=== PATIENT | male | born 1950 | race Caucasian/White ===

== ENCOUNTER 2022-04-24 10:04 | Emergency (ER) | payer OTHER ==
[~2022-04-24] VITALS: Ht 177.8 cm; Wt 116.1 kg
[2022-04-24] MEDS ORDERED: ONDANSETRON HCL/PF 4 MG/2 ML VIAL ONE (10:12)
[2022-04-24] MEDS ORDERED: PANTOPRAZOLE 40 MG VIAL ONE (10:12)
[2022-04-24] MEDS ORDERED: PANTOPRAZOLE 40 MG VIAL IV ONE (10:30)
[2022-04-24] MEDS ORDERED: ONDANSETRON HCL/PF 4 MG/2 ML VIAL IVP ONE (10:30)
[2022-04-24 10:56] LABS: BASOPHILS % (AUTO) 0.2 % (0.0-2.0); HEMATOCRIT 25 % (39-51); HEMOGLOBIN 7.7 g/dL (13.5-17.5); LYMPHOCYTES # (AUTO) 1.8 K/uL (0.8-4.8); LYMPHOCYTES % (AUTO) 6.8 % (20.0-44.0); MEAN CORPUSCULAR HGB CONC 31 g/dl (31.0-36.0); MEAN CORPUSCULAR VOLUME 95 fL (80-96); MONOCYTES # (AUTO) 1.9 K/uL (0.1-1.30); NEUTROPHILS # (AUTO) 23.1 K/uL (1.8-8.9); PLATELET COUNT (AUTO) 322 K/uL (150-450); WHITE BLOOD COUNT (AUTO) 26.9 K/uL (4.3-11.0)
[2022-04-24 11:05] LABS: CALCIUM, SERUM 7.2 mg/dL (8.5-10.1); CARBON DIOXIDE 21 mmol/L (21-32); CHLORIDE 113 mmol/L (98-107); CREATININE 2.2 mg/dL (0.6-1.3); GLUCOSE 111 mg/dL (74-106); POTASSIUM 4.4 mmol/L (3.5-5.1); SODIUM SERUM 142 mmol/L (136-145); UREA NITROGEN, BLOOD 64 mg/dL (7-18)
--- NOTE | 2022-04-24 11:16 | NUR ---
LAB CALLED [facility] 2.1 LEANNE FARRELL AWARE.
[2022-04-24 11:17] LABS: ALANINE AMINOTRANSFERASE 14 U/L (12-78); ALBUMIN 1.6 g/dL (3.4-5.0); ALKALINE PHOSPHATASE 49 U/L (46-116); ASPARTATE AMINOTRANSFERASE 28 U/L (15-37); BILIRUBIN,DIRECT 0.2 mg/dL (0.0-0.2); BILIRUBIN,TOTAL 0.4 mg/dL (0.2-1.0); TOTAL PROTEIN, SERUM 5.5 g/dL (6.4-8.2)
[2022-04-24 11:24] LABS: LIPASE 3074 U/L (73-393)
--- NOTE | 2022-04-24 11:35 | NUR ---
MOVE SHEET SUBMITTED.
--- NOTE | 2022-04-24 11:40 | NUR ---
URINE SAMPLE COLLECTED VIA STRAIGHT CATHETER, SAMPLE SENT TO LAB
--- NOTE | 2022-04-24 11:50 | NUR ---
RAPID COVID SWAB DONE AND SENT TO LAB
[2022-04-24] MEDS ORDERED: LEVOFLOXACIN 750 MG /D5W 150ML 150 ML IV ONE ×2 (12:00→12:02)
[2022-04-24] MEDS ORDERED: IV NS 0.9% 1,000 ML BAG IV ONE (12:00)
--- NOTE | 2022-04-24 12:04 | NUR ---
CALLED [facility] [phone] ASKED FOR RECORDS AND MD TO CALL US BACK.
[2022-04-24] MEDS ORDERED: INSU100V28 SQ (12:05)
[2022-04-24] MEDS ORDERED: INSU100I45 SQ (12:05)
[2022-04-24] MEDS ORDERED: ACET1TAB91 PO (12:05)
[2022-04-24] MEDS ORDERED: AMLO-213 PO (12:05)
[2022-04-24] MEDS ORDERED: INSU100V3 SQ (12:05)
[2022-04-24] MEDS ORDERED: HYDR-4077 PO (12:05)
[2022-04-24] MEDS ORDERED: CEFE1VIA3 IV (12:05)
[2022-04-24] MEDS ORDERED: ASPI-1169 PO (12:05)
[2022-04-24] MEDS ORDERED: LISI10TA29 PO (12:05)
[2022-04-24] MEDS ORDERED: VANC750V IV (12:05)
[2022-04-24] MEDS ORDERED: ATEN50TA PO (12:05)
[2022-04-24] MEDS ORDERED: HYDR28.316 TD (12:05)
[2022-04-24] MEDS ORDERED: LOVA20TA2 PO (12:05)
[2022-04-24 12:39] LABS: BILIRUBIN,URINE NEGATIVE (NEGATIVE); COLOR,URINE YELLOW (YELLOW); LEUKOCYTE ESTERASE ,URINE NEGATIVE (NEGATIVE); NITRITE, URINE NEGATIVE (NEGATIVE); PH,URINE 5.5 (5.0-8.0); PROTEIN,URINE 2+ mg/dl (NEGATIVE); UGLUCOSE 1+ mg/dL (NEGATIVE); UROBILINOGEN,URINE 0.2 EU/dL (0.2)
[2022-04-24 12:40] LABS: RBC,URINE 0-2 /HPF (0-2); WBC,URINE 0-2 /HPF (0-3)
[2022-04-24 12:41] LABS: BACTERIA,URINE Rare /HPF (None Seen); SQUAMOUS EPITHELIAL CELL,UR Rare /HPF (None Seen)
--- NOTE | 2022-04-24 14:09 | NUR ---
CALLED [facility] [phone] DR. MONAHAN WILL CALL BACK. VS 112/61 HR 60 SPO2 93%
--- NOTE | 2022-04-24 16:06 | NUR ---
[facility] ETA 5PM. GIVE REPORT TO [facility] CONTACT # [phone] JAUREGUI , PLS MAKE COPIES OF EVERYTHING
--- NOTE | 2022-04-24 16:15 | NUR ---
REPORT GIVEN TO JERMAIN PERDOMO OF [facility]
[2022-04-24 17:16] VITALS: BP 117/50
--- NOTE | 2022-04-24 17:26 | NUR ---
PICKED UP BY [facility] [address] TO BE TRANSFERRED TO [facility]. PATIENT IN STABLE CONDITION. ALL CLINICALS PROVIDED.
== END 2022-04-24 17:28 | disposition short-term general hospital (02) ==
LOC: ER 10:40
DX: K85.90 Acute pancreatitis without necrosis or infection, unspecified (principal); A41.9 Sepsis, unspecified organism; K92.2 Gastrointestinal hemorrhage, unspecified; K80.20 Calculus of gallbladder without cholecystitis without obstruction; D64.9 Anemia, unspecified; Z20.822 Contact with and (suspected) exposure to COVID-19; I10 Essential (primary) hypertension; E11.9 Type 2 diabetes mellitus without complications; Z79.4 Long term (current) use of insulin; Z79.899 Other long term (current) drug therapy
CPT/HCPCS: 99285; 74176; 96365; 71045; 96375; 87426; 93005; 85025; 80048; 87086; 83605 ×2; 83690; 80076; 81001; 36415; 84484; 85730; 86850; 87040 ×2; 87081; J2405; J7030; C9113; J1956; C9803